=== PATIENT | female | born 1985 | race Two or more races ===

== ENCOUNTER 2016-09-14 22:25 | Emergency (ER) | payer OTHER ==
--- NOTE | ~2016-09-14 | CT4 ---
[facility] A Service of [facility] RADIOLOGY TEXT RESULTS PATIENT: CHER JIMENES LOCATION: [facility] : 87 UNIT #: [id number] AGE: [address]: Aguila Garcia MD SEX: F ORDER DR: [id number] [facility]. [place], [place] [address] [id number] MR#: [id number] Acc #: [id number] NAME: CHER JIMENES : 1985 SEX: F STUDY DATE/TIME: 09/15/2016 1:03 UNIT: [facility] ROOM: STUDY DESCRIPTION: CT Abd and Pelv Wo Cont Attending Physician: Aguila Garcia M.D. Ordering Physician: Aguila Garcia M.D. Primary Care Physician: Primary Care Physician No MEDICAL IMAGING REPORT This report is preliminary unless electronic signature is present EXAM CT abdomen and pelvis, noncontrast, kidney stone protocol, 09/15/2016 HISTORY 31-year-old female in the ED complaining of pain across the back/phalanx. Urinary frequency. Fever. Symptoms began [address] examination of the abdomen and pelvis was performed without oral or IV contrast using kidney stone protocol as requested. This CT exam was performed with one or more of the following radiation dose reduction techniques: automatic exposure control, adjustment of mA and/or kV according to patient size, and iterative reconstruction. FINDINGS ABDOMEN FINDNGS: Both kidneys, both ureters and the urinary bladder are normal in noncontrast CT appearance. No visible nephrolithiasis or evidence of urinary obstruction. Liver and pancreas are normal in appearance. Nondistended gallbladder. No bile duct dilatation. Borderline splenomegaly with maximum splenic length measuring about 14.6 cm. Small bowel and colon are normal in caliber and appearance, as imaged. No evidence of acute appendicitis. PELVIS FINDINGS: Uterus, ovaries, bladder and rectum are within normal limits. Bilateral fallopian tubal occlusion implants. Limited lung base images show no active disease in the lower chest. IMPRESSION [facility] A Service of [facility] RADIOLOGY TEXT RESULTS PATIENT: CHER JIMENES LOCATION: [facility] : 87 UNIT #: [id number] AGE: [address]: Aguila Garcia MD SEX: F ORDER DR: 1. No acute abnormality within the abdomen or pelvis. No nephrolithiasis or evidence of urinary obstruction. 2. Borderline splenomegaly. Dictated by... Clarence Leon M.D. THIS IS AN ELECTRONICALLY VERIFIED REPORT Clarence Leon M.D. at 09/15/2016 6:04 AM WALTER/yan TD: 09/15/2016 05:07 JOB #: [id number] MEDICAL IMAGING REPORT Page 1 of 1 COPY
[~2016-09-14 22:25] MED LIST: AMOXICILLIN PO; ATARAX PO; LEVOXYL200 MC1 PO; MACROBID100 MG PO; PHENERGAN25 MG PO; PREDNISONE PO; PRENATAL MULTIV1 TA1; PRENATAL1 TA1 PO; ZOFRAN ODT4 MG PO
[2016-09-14 23:56] LABS: URINE SOURCE CLEAN CATCH
[2016-09-15 00:02] LABS: URINE APPEARANCE CLEAR; URINE BILIRUBIN NEG (NEG); URINE BLOOD 3+ (NEG); URINE COLOR YELLOW; URINE GLUCOSE NEG (NEG); URINE KETONE NEG (NEG); URINE LEUKOCYTE ESTERASE TRACE (NEG); URINE NITRATE NEG (NEG); URINE PROTEIN 1+ (NEG); URINE SPECIFIC GRAVITY 1.024 (1.003-1.035)
[2016-09-15 00:05] LABS: URBCS1 AUWI 25-50 /[HPF] (0-2); URINE BACTERIA AUWI NEG (NEGATIVE); URINE SQUAMOUS EPITHELIAL CELL NONE SEEN /[HPF]; UWBCS1 AUWI 0-2 (0-5)
[2016-09-15 00:07] LABS: CULTURE INDICATED? NO
[2016-09-15 00:11] LABS: INFLUENZA A NEG (NEG); INFLUENZA B NEG (NEG)
== END 2016-09-15 01:57 | disposition home or self-care (01) ==
LOC: CED 22:25
PROVIDERS: Emergency Medicine
DX: J02.0 Streptococcal pharyngitis (principal); N18.6 End stage renal disease; Z88.8 Allergy status to other drugs, medicaments and biological substances
CPT/HCPCS: 74176; 81003; 84703; 87804; 87880; 96361; 96372; 96374; 96375; 99284; J0561; J1100; J1885; J2405